=== PATIENT | male | born 1955 | race Caucasian/White ===

== ENCOUNTER 2019-12-27 08:30 | Emergency (ER) | payer OTHER, SELFPAY ==
[2019-12-27 08:35] VITALS: BP 130/78; PULSE 100; RESP 20; TEMP 38; O2SAT 97
--- NOTE | 2019-12-27 08:48 | ED.ABDPAIN ---
HPI - Abdominal Pain General Chief Complaint: Abdominal Pain Stated Complaint: stomach pain doesn't feel well Time Seen by Provider: 12/27/19 08:48 Source: patient Mode of arrival: ambulatory Limitations: no limitations History of Present Illness HPI narrative: 64-year-old man status post liver transplant comes in today complaining of epigastric pain that started overnight. Patient states that did not feel well so his work sent him home to be screened for COVID-19. He denies nausea, vomiting, diarrhea, cough, cold symptoms, sore throat, dysuria, hematuria and sick contacts. He states his screening temperatures at work were normal MD elicited complaint: abdominal pain Pertinent past history: other ( liver transplant) Onset (ago): hour(s) (6) Pain Consistency: constant Location: epigastric Severity: mild Quality: stabbing Radiation: none Migration to: no migration Exacerbating factors: nothing Relieving factors: nothing Associated symptoms: denies other symptoms Related Data Home Medications Medication Instructions Recorded Confirmed amlodipine 5 mg PO DAILY 12/27/19 12/27/19 tacrolimus [Prograf] 1 mg PO Q12H 12/27/19 12/27/19 tamsulosin 0.4 mg PO HS 12/27/19 12/27/19 Allergies Allergy/AdvReac Type Severity Reaction Status Date / Time No Known Allergies Allergy Verified 12/27/19 08:52 Review of Systems Constitutional: Constitutional: Denies chills, Denies fever(s) and Denies weakness Eyes: Eyes: Denies change in vision and Denies photophobia ENT: Denies dysphagia, Denies nasal congestion and Denies sore throat Cardiovascular: Cardiovascular: Denies chest pain and Denies radiating jaw, neck or arm pain Respiratory: Respiratory: Denies cough and Denies dyspnea Gastrointestinal: Gastrointestinal: Reports abdominal pain, Denies diarrhea, Denies nausea and Denies vomiting Genitourinary: Genitourinary: Denies hematuria, Denies dysuria and Denies urinary frequency Musculoskeletal: Musculoskeletal: Denies back pain, Denies arthralgias and Denies joint swelling Integumentary/Breasts: Skin/Breast: Denies pruritus, Denies erythema and Denies rash Neurologic: Denies vertigo, Denies dizziness and Denies syncope Hematologic/Lymphatic: Hematologic/Lymphatic: Denies easy bleeding and Denies easy bruising Allergic/Immunologic: Allergic/Immunologic: Denies lip swelling and Denies tongue swelling [facility] Past Medical History Medical History BPH (benign prostatic hyperplasia) HTN (hypertension) Surgical History Surgical History H/O foot surgery Liver transplanted Social History Social History Smoking status: Never smoker Alcohol intake: never Substance use type: marijuana Other substance usage details: occasional Living arrangements: with family Exam Const: General: healthy appearing, no acute distress and alert Orientation/consciousness: patient oriented x3 Limitations: no limitations HENMT: Head: normal to inspection Ears: external ears normal, TM's normal bilaterally and EAC's normal General nose exam: Normal nares present Face and sinus: normal facial exam Mouth: Yes moist mucous membranes Throat: posterior oropharynx normal Eyes: Conjunctivae: conjunctivae normal Pupils: Equal, round and reactive pupils present EOM: EOMs intact bilaterally Resp: Effort & Inspection: normal respiratory effort and not labored Auscultation: clear to auscultation bilaterally, no rales, no rhonchi and no wheezes Cardio: Rate: regular rate Rhythm: regular rhythm Heart sounds: no murmurs GI: GI Palp: Yes Soft to palpation, No Tenderness to palpation present (GI), No Guarding due to palpation present (GI) and No Palpable mass present Skin: General skin exam: normal color, no jaundice and no pallor Rashes: no rashes Neuro: General: patie
[2019-12-27 09:21] LABS: Basophils Absolute Auto 0.01 K/mm3 (0.00-0.10); Basophils Percent Auto 0.1 % (0.0-1.0); Eosinophils Absolute Auto 0.07 K/mm3 (0.02-0.50); Hematocrit 39.4 % (40.0-54.0); Hemoglobin 13.7 g/dL (14.0-18.0); Immature Granulocyte Absolute 0.01 K/mm3 (0.00-0.00); Immature Granulocyte Percent A 0.1 % (0.0-0.0); Lymphocytes Absolute Auto 0.22 K/mm3 (1.10-4.50); Lymphocytes Percent Auto 3.1 % (18.0-42.0); Mean Corpuscular HGB Conc 34.8 g/dL (32.0-36.0); Mean Corpuscular Hemoglobin 30.6 pg (27.0-31.0); Mean Corpuscular Volume 87.9 fL (78.0-102.0); Mean Platelet Volume 9.8 fl (8.7-11.0); Monocytes Absolute Auto 0.71 K/mm3 (0.10-0.90); Monocytes Percent Auto 9.9 % (2.0-11.0); Neutrophils Absolute Auto 6.2 K/mm3 (1.7-7.2); Neutrophils Percent Auto 85.8 % (50.0-70.0); Platelet Count Result 95 K/mm3 (150-420); Red Blood Count 4.48 M/mm3 (4.70-6.10); White Blood Count 7.2 K/mm3 (4.8-10.8)
[2019-12-27 09:27] LABS: Add Urine Microscopic? NO; Appearance Urine Clear (Clear); Bilirubin Urine Negative (Negative); Blood Urine Negative (Negative); Color Urine Yellow (Yellow); Glucose Urine UA Negative (Negative); Ketones Urine Negative (Negative); Leukocyte Esterase Ur Negative (Negative); Nitrate Urine Negative (Negative); Protein Urine Negative (Negative); Specific Grav Ur 1.015 (1.010-1.020)
[2019-12-27 09:34] LABS: Alanine Aminotransferase 89 U/L (16-63); Albumin Level 3.6 g/dL (3.4-5.0); Alkaline Phosphatase 231 U/L (46-116); Anion Gap 8 mmol/L (8-16); Aspartate Amino Transferase 116 U/L (15-37); Bilirubin,Total 0.8 mg/dL (0.00-1.00); Blood Urea Nitrogen 18 mg/dL (7-18); Calcium 8.2 mg/dL (8.5-10.1); Carbon Dioxide 28 mmol/L (21-32); Chloride 102 mmol/L (98-108); Estimated CRCL calculation 67 ml/min; Estimated Glomerular Filt Rate > 60; Glucose 111 mg/dL (70-99); Lipase 155 U/L (73-393); Osmolality Calculated 288 mOsm/kg (285-295); Potassium 3.8 mmol/L (3.5-5.1); Sodium 138 mmol/L (136-145); Total Protein 6.8 g/dL (6.4-8.2)
[2019-12-27 09:44] VITALS: BP 128/78; PULSE 80; RESP 18; TEMP 37.6; O2SAT 99
[2019-12-28 13:14] LABS: SARS-CoV-2 RNA PCR Negative
== END 2019-12-27 09:54 | disposition home or self-care (01) ==
PROVIDERS: Emergency Provider Emergency Medicine; PCP Family Medicine
DX: R10.13 Epigastric pain (principal); Z20.828 Contact with and (suspected) exposure to other viral communicable diseases
CPT/HCPCS: 36415; 80053; 81003; 83690; 85025; 87635; 99281; 99283; C9803; U0003

== ENCOUNTER 2021-11-01 11:13 | Emergency (ER) | payer OTHER, SELFPAY ==
--- NOTE | ~2021-11-01 | XR_ITS ---
EXAMINATION: XR finger 2nd RT min 2V DATE: 11/01/2021 11:57 INDICATION: Renal injury to the distal right index finger TECHNIQUE: Dorsal palmar, lateral and 2 oblique views of the right second digit were obtained COMPARISON: None FINDINGS: Alignment is normal. No fracture. Mild to moderate osteoarthritis at the first carpometacarpal joint. Remaining visualized joint spaces are normal. Soft tissue defect at the dorsal/ulnar aspect of the d istal phalanx of the right second digit likely with associated nail injury. No radiopaque foreign bod ies. IMPRESSION: 1. No acute osseous abnormality or radiopaque foreign body. Reviewed, dictated and finalized at location A.
[2021-11-01 11:30] VITALS: BP 149/87; PULSE 67; RESP 14; TEMP 36.4; O2SAT 98
[2021-11-01] MEDS: TETANUS,DIPHTHERIA,AC PERTUSSIS ADULT 0.5 ML (ADACEL) IM (11:47)
--- NOTE | 2021-11-01 12:09 | ED.WOUNDLAC ---
HPI - Wound/Laceration General Chief Complaint: Wound/Laceration Stated Complaint: CUT FINGER Time Seen by Provider: 11/01/21 11:15 Source: patient History of Present Illness HPI narrative: patient presents with a injury to his right index finger after he cause an avulsion injury to the tip of his right index finger and nail while using a drill earlier today, the patient finger initially was bleeding, pressure was applied and currently there is no bleeding. Has no numbness or tingling has good range of motion in his distal finger. Onset (ago): hour(s) Extremity Location: Right: hand ( Tip of his right index finger) Place: home Patient tetanus UTD: No Context: accidental Associated symptoms: none Related Data Home Medications Medication Instructions Recorded Confirmed amlodipine 5 mg tablet 5 mg PO DAILY 12/27/19 12/27/19 tacrolimus 1 mg capsule, 1 mg PO Q12H 12/27/19 12/27/19 immediate-release (Prograf) Allergies Allergy/AdvReac Type Severity Reaction Status Date / Time No Known Allergies Allergy Verified 11/01/21 11:37 Review of Systems Review of Systems: All systems reviewed & are unremarkable except as noted in HPI and below PMFSH Past Medical History Medical History BPH (benign prostatic hyperplasia) HTN (hypertension) Surgical History Surgical History H/O foot surgery Liver transplanted Social History Social History Smoking status: Never smoker Alcohol intake: never Substance use type: marijuana Other substance usage details: occasional Exam Const: General: healthy appearing, no acute distress and alert Limitations: no limitations HENMT: Head: normal to inspection General nose exam: Normal external nose present Mouth: Yes Normal oral and palatal mucosa present Throat: posterior oropharynx normal Eyes: Conjunctivae: conjunctivae normal Neck: Neck: normal visual inspection, no lymphadenopathy and no meningeal signs Chest: Chest palpation & inspection: normal inspection of the chest Resp: Effort & Inspection: normal respiratory effort Cardio: Rate: regular rate Rhythm: regular rhythm GI: GI Palp: Yes Soft to palpation Back/Spine/Pelvis: Back: no CVA tenderness Skin: Wounds: wounds noted Other: avulsion injury to the tip of his right index finger Neuro: General: patient oriented x3, moves all extremities, no meningeal signs and no focal motor deficits Extrem: General: no clubbing, cyanosis or edema and no pedal edema Psych: Mental Status: mental status grossly normal Course Course Emergency Course: tetanus was updated, pressure was applied and reassessment of patient currently no bleeding from the right index finger and x-ray performed shows no acute fractures. Critical Care Time Critical Care Time Critical Care Time: No Discharge Plan Discharge Clinical Impression: Avulsion of skin Patient Disposition: Home, Self-Care Condition: Stable Instructions: Antibiotic Form, Skin Avulsion (ED) Additional Instructions: Continue with gauze and follow-up with primary care physician if symptoms persist or worsen. Prescriptions: No Action amlodipine 5 mg Tablet 5 mg PO DAILY tamsulosin 0.4 mg Capsule 0.4 mg PO HS tacrolimus [Prograf] 1 mg Capsule 1 mg PO Q12H Follow-up/Referrals: Nixon,MD Emeterio [Primary Care Provider] - Time of Disposition: 12:13
== END 2021-11-01 12:26 | disposition home or self-care (01) ==
PROVIDERS: Emergency Provider Emergency Medicine; PCP Family Medicine
DX: S61.200A Unspecified open wound of right index finger without damage to nail, initial encounter (principal); W27.8XXA Contact with other nonpowered hand tool, initial encounter
CPT/HCPCS: 73140; 90471; 90715; 99283